=== PATIENT | female | born 1940 | race Caucasian/White ===

== ENCOUNTER 2020-06-05 19:49 | Emergency (ER) | payer MEDICARE, OTHER, SELFPAY ==
[2020-06-05] VITALS (8 sets, daily range): BP systolic 163–196; BP diastolic 74–89; PULSE 74–81; RESP 12–23; TEMP 36.8; O2SAT 98–100; BMI 20.7
--- NOTE | 2020-06-05 20:21 | ED.GENADULT ---
HPI - General Adult General Chief complaint: Syncope Stated complaint: Syncope Time Seen by Provider: 06/05/20 20:21 Source: EMS Mode of arrival: EMS History of Present Illness HPI narrative: 80-year-old woman visiting from [place] staying with her daughter who had an episode of orthostatic hypotension while having a bowel movement earlier today. She was feeling well, got up to the bathroom to have a bowel movement felt acutely lightheaded as she was Valsalving. When she stopped pushing she did feel a bit better thought that she was done but then noticed there was more stool that needed to come out and sat down again and with the Valsalva that time she again felt significantly lightheaded. No chest pain or pain in her abdomen. She went to stand up and was able to get to the door way and call for help when she passed out her son and daughter describe her slumping to the floor holding onto the edge of the doorway in hitting the back of her head on the molding of the door. Brief loss of consciousness with no seizure-like activity and immediate return of normal level of alertness. Related Data Allergies Allergy/AdvReac Type Severity Reaction Status Date / Time unknown antibiotic Allergy Intermediate Uncoded 06/05/20 19:57 Review of Systems Review of Systems Narrative: Pertinent positive and negative findings as per HPI Remainder of review of systems is otherwise unremarkable for Constitutional: Fevers, chills, weakness ENT: No sore throat, neck pain, ear pain CV: Chest pain, palpitations, dyspnea on exertion Respiratory: Cough, wheeze, dyspnea GI: Nausea, vomiting, diarrhea, change in bowel habits, black or bloody stools : Dysuria, hematuria, flank pain MS: Muscle weakness, numbness, joint swelling or warmth Skin: Rashes, nonhealing lesions Patient History Social History Smoking Status: Never smoker Smoking Status: Never smoker Substance Use Type: does not use Exam Narrative Exam Narrative: General: Healthy appearing, in no acute distress. Able to give a complete and coherent history. Well-nourished well-developed HEENT: Moist mucous membranes, normal sclera with reactive pupils, 3 cm laceration to the occiput without significant contusion, abrasion or hematoma. Neck: No midline point tenderness along the cervical spine, supple Respiratory: Lungs are clear to auscultation, no wheezing no rales no rhonchi. Full and symmetrical air movement Chest: No abrasions or contusions and no tenderness with palpation to chest wall or thoracic spine Cardiac: Regular rate and rhythm no murmurs no bruits Abdomen: Soft nontender good bowel tones, no flank pain Skin: Warm and dry, no rashes Neurologic: Grossly neurologically intact with no obvious asymmetries or abnormalities Extremities: No trauma, well perfused Psych: Cooperative, appropriate insight and affect Initial Vital Signs Initial Vital Signs: Vital Signs Temperature 98.2 F 06/05/20 19:51 Pulse Rate 76 06/05/20 19:51 Respiratory Rate 12 06/05/20 19:51 Blood Pressure 196/89 H 06/05/20 19:51 Pulse Oximetry 100 06/05/20 19:51 Procedures Laceration Repair Scalp: Site: scalp Size (cm): 4 Description: linear and clean Depth: simple, single layer Local Anesthetic: lidocaine 1% and with epi Pre-repair: wound explored and deep structures intact Skin layer closed with: leslie Number of sutures: 5 Course Orders Ordered: ED Orders 06/05/20 19:50 Complete Blood Count AUTO DIFF Stat Comprehensive Metabolic Panel Stat Troponin I Stat 06/05/20 20:34 CT head/brain wo con Stat Urinalysis and Microscopic Stat EKG-12 Lead Stat Vital Signs Vital signs: Vital Signs - 8 hr 06/05/20 19:51 06/05/20 20:48 06/05/20 20:50 Temperature 98.2 F Pulse Rate 76 79 77 Respiratory Rate 12 16 Blood Pressure 196/89 H Pulse Oximetry 100 98 Medical Decision Making Lab Data Lab results reviewed: Yes I reviewed the patient's lab results. Result diagrams: 06/05/20 19:50 06/05/20 19:50 Labs: Lab Results 06/05/20 06/05/20 Range/Units 19:50 19:50 WBC 9.6 (4.5-11.0) X10^3/uL RBC 4.15 (4.0-5.2) X10^6/uL Hgb 13.0 (12.0-16.0) g/dL Hct 38.5 (36-46) % MCV 92.9 (80-100) fL MCH 31.3 (26-34) PG MCHC 33.7 (30-36) % RDW 13.0 (11.6-14.8) % Plt Count 437 H (150-400) X10^3/uL Neut % (Auto) 47.9 L (50-75) % Lymph % (Auto) 39.0 (25-40) % [place] % (Auto) 9.7 (3-14) % Eos % (Auto) 2.3 (2-4) % Baso % (Auto) 1.1 (0-2) % Neut # (Auto) 4600 (6497-0185) /uL Lymph # (Auto) 3800 (1124-5933) /uL [place] # (Auto) 900 (0-900) /uL Eos # (Auto) 200 (0-450) /uL Baso # (Auto) 100 (0-100) /uL Sodium 131 L (137-145) mmol/L Potassium 3.5 (3.4-5.1) mmol/L Chloride 98 (98-107) mmol/L Carbon Dioxide 26 (22-32) mmol/L BUN 20 H (7-17) mg/dL Creatinine 0.72 (0.52-1.04) mg/dL Estimated GFR > 60.0 (>60) mL/min BUN/Creatinine Ratio 27.8 H (6-22) Glucose 119 H (80-110) mg/dL Calcium 9.1 (8.4-10.2) mg/dL Total Bilirubin 0.3 (0.2-1.3) mg/dL AST 31 (14-36) IU/L ALT 19 (<35) IU/L Alkaline Phosphatase 179 H (38-126) U/L Troponin I < 0.012 (0.01-0.034) ng/mL Total Protein 7.3 (6.3-8.2) g/dL Albumin 3.9 (3.5-5.0) g/dL Globulin 3.4 (1.7-4.1) g/dL Albumin/Globulin Ratio 1.1 (1.0-2.8) Imaging Data CT scan - head: Radiologist's Impression: FINDINGS: Image quality: Excellent. CSF spaces: Basal cisterns are patent. No extra-axial fluid collections. The ventricles are symmetric in size and shape. Brain: No intracranial bleeds or masses. There is cerebral volume loss for age, with resultant ventricular and sulcal prominence. There are periventricular and deep white matter chronic small vessel ischemic changes. There is intracranial internal carotid artery atherosclerosis. Skull and face: Calvarium and visualized facial bones appear intact, without suspicious lesions. Sinuses: Visualized sinuses and mastoids are clear. IMPRESSION: No acute intracranial process. Dictated by: Bobby Gilbert M.D. on 06/05/2020 at 20:51 MDM Narrative Medical decision making narrative: 80-year-old woman who had a vasovagal syncopal episode while having a bowel movement today. She has had similar episodes previously. Workup does not suggest infection, sepsis, acute coronary syndrome, stroke and she has no intracranial hemorrhage. She did suffer a laceration to the back of her head, 4 cm curvilinear in shape that is easily reapproximated with 5 leslie placed. She tolerated procedure well. She is safe for home discharge Discharge Plan Departure Patient Disposition: Home Clinical Impression: Vasovagal syncope, Laceration Instructions: DI for Syncope in Adults (Fainting), DI for Laceration Repair of the Scalp Activity Restrictions/Additional Instructions: Thank you for coming in today I believe you had an episode of vaso vagal syncope. The workup that we did in the emergency room does not suggest any acute life-threatening issues today. Specifically there is no sign of infection, heart arrhythmia or heart attack, there is no stroke and no bleeding inside your brain. The laceration to the top of your head was reapproximated with 5 leslie and these will need to come out on or about 06/15. If you are still in [place] at that time, please feel free to return to the emergency room in our nurses can help with the staple removal. If you have recurrent symptoms or develop any new findings or concerns please feel free to return to the emergency department. I hope the rest of your vacation out here is a bit less eventful.
--- NOTE | 2020-06-05 20:34 | DI.CT.S_ITS ---
PROCEDURE: CT HEAD/BRAIN WO CON INDICATIONS: fall with head trauma after syncopal episode TECHNIQUE: Noncontrast 4.5 mm thick angled axial sections acquired from the foramen magnum to the vertex, with coronal and sagittal reformats. For radiation dose reduction, the following was used: automated exposure control, adjustment of mA and/or kV according to patient size. COMPARISON: None. FINDINGS: Image quality: Excellent. CSF spaces: Basal cisterns are patent. No extra-axial fluid collections. The ventricles are symmetric in size and shape. Brain: No intracranial bleeds or masses. There is cerebral volume loss for age, with resultant ventricular and sulcal prominence. There are periventricular and deep white matter chronic small vessel ischemic changes. There is intracranial internal carotid artery atherosclerosis. Skull and face: Calvarium and visualized facial bones appear intact, without suspicious lesions. Sinuses: Visualized sinuses and mastoids are clear. IMPRESSION: No acute intracranial process. Dictated by: Bobby Gilbert M.D. on 06/05/2020 at 20:51 Approved by: Bobby Gilbert M.D. on 06/05/2020 at 20:53
[2020-06-05 20:42] LABS: Add Manual Diff / Slide Review NO; Basophils Absolute Auto 100 /uL (0-100); Basophils Percent Auto 1.1 % (0-2); Eosinophils Absolute Auto 200 /uL (0-450); Eosinophils Percent Auto 2.3 % (2-4); Hematocrit 38.5 % (36-46); Lymphocytes Absolute Auto 3800 /uL (1100-4500); Mean Corpuscular HGB Conc 33.7 % (30-36); Mean Corpuscular Hemoglobin 31.3 PG (26-34); Mean Corpuscular Volume 92.9 fL (80-100); Monocytes Absolute Auto 900 /uL (0-900); Monocytes Percent Auto 9.7 % (3-14); Neutrophils Absolute Auto 4600 /uL (1500-7000); Neutrophils Percent Auto 47.9 % (50-75); Platelet Count 437 X10^3/uL (150-400); Red Blood Cell Count 4.15 X10^6/uL (4.0-5.2); White Blood Cell Count 9.6 X10^3/uL (4.5-11.0)
[2020-06-05 20:51] LABS: Alanine Aminotransferase 19 IU/L (<35); Albumin 3.9 g/dL (3.5-5.0); Albumin Globulin Ratio 1.1 (1.0-2.8); Alkaline Phosphatase 179 U/L (38-126); Aspartate Aminotransferase 31 IU/L (14-36); BUN Creatinine Ratio 27.8 (6-22); Bilirubin Total 0.3 mg/dL (0.2-1.3); Blood Urea Nitrogen 20 mg/dL (7-17); Calcium 9.1 mg/dL (8.4-10.2); Carbon Dioxide 26 mmol/L (22-32); Chloride 98 mmol/L (98-107); Estimated Glomerular Filt Rate > 60.0 mL/min (>60); Globulin 3.4 g/dL (1.7-4.1); Glucose 119 mg/dL (80-110); HEMOLYSIS < 15 (0-50); Potassium 3.5 mmol/L (3.4-5.1); Sodium 131 mmol/L (137-145); Total Protein 7.3 g/dL (6.3-8.2)
[2020-06-05 21:03] LABS: Troponin I < 0.012 ng/mL (0.01-0.034)
[2020-06-05] MEDS: IBUPROFEN 400 MG TABLET PO (22:15)
[2020-06-05] MEDS: ACETAMINOPHEN 325 MG TABLET PO (22:15)
== END 2020-06-05 22:23 | disposition home or self-care (01) ==
PROVIDERS: Emergency Provider Emergency Medicine
DX: R55 Syncope and collapse (principal); S01.01XA Laceration without foreign body of scalp, initial encounter; W19.XXXA Unspecified fall, initial encounter
CPT/HCPCS: 12002; 36415; 70450; 80053; 84484; 85025; 99283; 99284